=== PATIENT | male | born 1965 | race Caucasian/White ===

== ENCOUNTER 2018-10-12 16:36 | Emergency (ER) | payer OTHER, SELFPAY ==
[2018-10-12 16:37] VITALS: BP 146/90; PULSE 82; RESP 15; TEMP 36.7; O2SAT 96; BMI 30.2
--- NOTE | 2018-10-12 17:25 | RAD_ITS ---
STUDY: X-RAY - LEFT HAND, SECOND DIGIT REASON FOR EXAM: Male, 53 years old. Pain TECHNIQUE: 3 view(s) of the finger were obtained. COMPARISON: None. FINDINGS: There is soft tissue edema. There is soft tissue laceration with air within the soft tissues within the ventral soft tissues which extends from the metacarpal phalangeal joint to the distal phalanx of the second digit.. There are no fractures. Bone mineralization is preserved. RAD/Finger(s) Min 2 Views IMPRESSION: Soft tissue edema with with soft tissue laceration of the second digit with extensive air within the ventral soft tissues extending from the metacarpal phalangeal joint to the distal phalanx. No fractures Electronically Signed: Joe Valle, at 17:50 EDT Tel , Service support ,
--- NOTE | 2018-10-12 18:08 | ED.VISSUMM ---
- ER Visit Summary Date of Service: 10/12/18 Chief Complaint: [Laceration to left index finger] History of Present Illness: The patient is a 53 M [to the emergency department after sustaining a laceration to his left index finger that occurred prior to arrival in the emergency department. Patient states that he was using a pressure supervisor when at high throttle he accidentally came across his left index finger. Patient sustained a laceration to the volar aspect of the PIP joint. Patient states instantly his finger seems swollen to twice its original size. Since the time of injury patient's been squeezing the finger and he has been having air and water seeping out of it. He denies significant pain after taking some bupropion. Patient is right-hand dominant. Patient is up-to-date on tetanus. Patient is adamant that this was only water and the pressure supervisor and it did not have any detergent or other chemicals in it.] Physical Examination: HEENT-PERRLA, EOMI. Cranial nerves II through XII grossly intact. TMs clear. Mucous membranes moist. No adenopathy. Cardiovascular-regular rate and rhythm without murmur or ectopy Lungs-clear to auscultation, chest wall stable without crepitus or subcu emphysema Abdomen-normoactive bowel sounds, soft, nontender, no rebound or rigidity, no peritoneal signs. Extremities-intact ?4, normal range of motion, normal pulses. Left index finger-patient has a 1 cm laceration over the volar aspect of the DIP joint of the left index finger. Patient has normal range of motion in flexion extension of the DIP joint as well as the PIP joint. Normal cap refill. Normal sensation.] Test Results: [X-rays of the left index finger obtained showed air in the soft tissues with laceration over the DIP joint. No fractures or foreign bodies noted within the wound.] Emergency Department Course and Treatment: [Case was initially discussed with who asked that we leave the wound open and not suture. At this point I was asked to put him on antibiotics and have patient follow-up with his office tomorrow. Patient is not waiting for pain. ] Treatment Plan: [Follow-up with hand surgeon tomorrow. Patient be started on Keflex.] Disposition: [Discharged home in stable condition.] Impression: [Pressure injury left index finger with laceration of 1 cm to left index finger-not repaired] This note was generated with [employer] dictation software. It may contain incorrect words, spelling, and punctuation that were not noted in review of the chart prior to signing ED Disposition - Plan for ED Patient: Referrals: Cinthia Marshall PA [Primary Care Provider] -
--- NOTE | 2018-10-12 18:12 | ED.DEP ---
ED Disposition - Plan for ED Patient: Instructions: LACERATION, Hand, LACERATION, Small/superficial, Not sutured Prescriptions: Cephalexin [Keflex] 500 mg PO Q6 #40 cap Prescription Printed Referrals: Cinthia Marshall PA [Primary Care Provider] - Topher Walker MD [STAFF PHYSICIAN] - 1 Day for another exam
[2018-10-12] MEDS: Cephalexin 250 MG Capsule 500 MG PO (18:17)
[2018-10-12 18:20] VITALS: RESP 18
== END 2018-10-12 18:21 | disposition home or self-care (01) ==
LOC: ED 17:22
PROVIDERS: Emergency Provider Emergency Medicine; Family Provider Physician Assistant; PCP Physician Assistant
DX: S61.211A Laceration without foreign body of left index finger without damage to nail, initial encounter (principal); W94.0XXA Exposure to prolonged high air pressure, initial encounter; Y93.9 Activity, unspecified; Y92.9 Unspecified place or not applicable
CPT/HCPCS: 73140; 99283

== ENCOUNTER 2020-02-03 09:07 | Observation (INO) | payer OTHER, SELFPAY ==
[2018-10-16 14:46] VITALS: BMI 30.2
[2020-02-03 09:07] VITALS: BP 170/109; PULSE 82; RESP 18; TEMP 36.8; O2SAT 99; BMI 31.4
--- NOTE | 2020-02-03 09:42 | CT_ITS ---
STUDY: CT ABDOMEN AND PELVIS WITH CONTRAST REASON FOR EXAM: Male, 54 years old. EPIGASTRIC PAIN, BILATERAL HERNIA REPAIR RADIATION DOSAGE (If Supplied By Facility): CTDIvol = ( 16.06 ) mGy, DLP = ( 1181.01 ) mGycm TECHNIQUE: Transaxial images were obtained from the dome of the diaphragm to the symphysis pubis with oral contrast. Oral and amp;amp; IV Gastrografin and amp;amp; 100mL Isovue-300 was administered. Sagittal and coronal images were reconstructed. Individualized dose optimization techniques were used for this CT. COMPARISON: Comparison is made with prior study dated 02/10/2017. FINDINGS: Minimal degree of bibasilar atelectasis. Calcified left hilar lymph nodes. The visualized portions of the heart are within normal limits. There is decreased attenuation of the liver consistent with steatosis. The patient is status post cholecystectomy. Normal spleen. Normal pancreas. Normal bilateral adrenal glands. Normal right kidney. Normal left kidney. Normal visualized stomach. Small bowel obstruction. There is evidence of diffuse circumferential wall thickening of the distal ileum. There is increased markings in the mesenteric fat at the level of the root of the mesentery. Small lymph nodes are seen within the mesenteric fat. There are multiple colonic diverticula consistent with diverticulosis. The appendix is visualized and appears normal. There is diffuse atherosclerotic calcification of the abdominal aorta, without a demonstrated aneurysm. Normal inferior vena cava. Normal retroperitoneum. Normal urinary bladder. There is a small umbilical hernia containing fat. Small bilateral inguinal hernias containing fat. Normal osseous structures. CT/Abdomen/Pelvis W IV Cont ONLY IMPRESSION: Small bowel obstruction with evidence of thickening of the distal ileum with increased markings in the root of the mesentery with small lymph nodes. Electronically Signed: Jose Raul Rausch, at 11:55 EDT , Service support ,
--- NOTE | 2020-02-03 09:42 | EKG12_ITS ---
Test Reason : CP Blood Pressure : / mmHG Vent. Rate : 082 BPM Atrial Rate : 082 BPM P-R Int : 160 ms QRS Dur : 096 ms QT Int : 378 ms P-R-T Axes : 056 023 013 degrees QTc Int : 441 ms Normal sinus rhythm Inferior infarct , age undetermined , cannot be excluded Abnormal ECG Confirmed by ANAY LA, SAUL ([id number]), social media editor JAKUB APARICIO ([id number]) on 02/07/2020 12:43:03 PM Referred By: KYLER Confirmed By:SAUL CUEVA MD
--- NOTE | 2020-02-03 09:44 | ED.VIS.GEN ---
History of Present Illness Chief Complaint: Chest Pain Informant: Patient Onset: Yesterday Context: Gradual Onset Timing: Intermittent Narrative: Is a 54-year-old male presenting with epigastric discomfort and abdominal pain. States he started to feel unwell last night when he went to bed with a stomachache. Around 2 AM he woke up with significant reflux and a burning sensation in his chest. He then started having stomach cramps that are in his lower abdomen lasting for about 30 seconds. He states it was like labor pains. They were about every 5 minutes throughout the night. He notes that he had prior cramp like that before his gallbladder was taken out. He also has had similar symptoms with IBS. Today he went to work and had a bowel movement. Shortly afterwards he started feel lightheaded, diaphoretic and then sat down. He developed dry heaves and vomiting. He denies any black or blood in his vomit or stool. He denies any fever or chills. His work symptom to be evaluated and also states that he cannot return until he has a Covid test. Patient had a televisit on his way in the ER that agreed that patient needed further emergent evaluation. Patient took his Nexium last night has not taken any medications today. No other complaints at this time. Prior similar symptoms: Yes - IBS, gallbladder flairs Past Medical History - Allergies and Home Meds Allergies/Adverse Reactions: Allergies codeine Allergy (Mild, Verified 10/16/18 14:45) Hives iodine Allergy (Mild, Verified 10/16/18 14:45) Hives SEAFOOD/FISH Allergy (Severe, Uncoded 10/16/18 14:45) Anaphylaxis Past Medical History: - - IBS Surgical History: cholecystectomy, hysterectomy Lives: Spouse/ Significant Other Smoking Status: Never smoker Alcohol: None Drugs: None - Family History Maternal Family History: Family History (Last Updated 10/13/18 @ 11:56 by Sanna Banerjee) Father Alcoholism Mother History of blood clots Family History: Reports: No pertinent history Paternal Family History: Family History (Last Updated 10/13/18 @ 11:56 by Sanna Banerjee) Father Alcoholism Mother History of blood clots Family History: Reports: No pertinent history Review of Systems General: Reports: Malaise, Sweats. Denies: Chills, Fever Eyes: Denies: Visual changes - bilaterally, Diplopia ENT: Denies: Bilateral ear pain, Rhinorrhea, Sore throat Cardiovascular: Reports: Chest pain. Denies: Palpitations Respiratory: Denies: Dyspnea, Cough, Sputum, Dyspnea on exertion Gastrointestinal: Reports: Abdominal pain, Nausea, Vomiting, Diarrhea. Denies: Melena, Hematochezia Genitourinary: Denies: Dysuria, Hematuria, Frequency Musculoskeletal: Denies: Back pain, Extremity Pain Skin: Denies: Rash, Wounds Neurological: Denies: Headache, Weakness, Numbness Physical Exam Vital Signs/Narrative: Vital Signs Temp Pulse Resp BP Pulse Ox 02/03/20 09:07 98.2 F 82 18 170/109 H 99 Inital Vital Signs reviewed: Yes General: Well nourished, Well developed, No Acute Distress Head: Normocephalic, Atraumatic Eyes: Perrl, EOMI ENT: Moist mucous membranes, No rhinorrhea, TM's clear Neck: Supple, Nontender, No JVD Cardiovascular: Regular rate, Regular rhythm, No murmurs Respiratory: No distress, CTA bilaterally, Chest nontender Abdomen: Soft, Nontender, Nondistended, Hyperactive bowel sounds. Negative for: Guarding, Rebound tenderness Back: Nontender, Normal Inspection. Negative for: CVA tenderness Extremities: Nontender, No edema Skin: Normal color, No rash Neurological: Alert, Oriented x3, Cranial nerves II-XII grossly intact, Normal Strength, Normal Sensation Psychological: Normal affect, Normal Mood Diagnostic/Tx/Re-eval Clinical Impression(s) from Imaging Studies Abdomen/Pelvis CT 02/03/20 09:42 IMPRESSION: Small bowel obstruction with evidence of thickening of the distal ileum with increased markings in the root of the mesentery with small lymph nodes. Electronically Signed: Jose Raul Rausch, at 11:55 EDT , Service support , Laboratory Data 02/03/20 02/03/20 02/03/20 09:10 09:10 09:55 WBC 10.6 RBC 5.90 Hgb 17.2 H Hct 51.8 MCV 87.8 MCH 29.2 MCHC 33.2 RDW Std Deviation 40.9 RDW Coeff of Srinivas 12.6 Plt Count 289 MPV 10.1 Immature Gran % (Auto) 0.500 Neut % (Auto) 85.4 H Lymph % (Auto) 9.1 L [place] % (Auto) 4.2 Eos % (Auto) 0.5 Baso % (Auto) 0.3 Absolute Neuts (auto) 9.1 H Absolute Lymphs (auto) 0.97 Nucleated RBC % 0 Sodium 138 Potassium 4.0 Chloride 105 Carbon Dioxide 27.0 Anion Gap 6 BUN 13 Creatinine 1.28 Estim Creat Clear Calc 74.56 Est GFR (MDRD) Af Amer 75 Est GFR (MDRD) Non-Af 62 BUN/Creatinine Ratio 10.2 Glucose 118 H Calcium 9.8 Total Bilirubin 1.00 Direct Bilirubin 0.25 AST 26 ALT 46 Alkaline Phosphatase 90 Troponin I < 0.015 Total Protein 9.5 H Albumin 4.3 Globulin 5.2 H Lipase 74 Urine Color Yellow Urine Clarity Sl. Cloudy Urine pH 6.5 Ur Specific [place] 1.015 Urine Protein 30 H Urine Glucose (UA) Normal Urine Ketones 5 H Urine Occult Blood 25 H Urine Nitrite Negative Urine Bilirubin Negative Urine Urobilinogen Normal Ur Leukocyte Esterase 25 H Urine RBC 0 SEEN Urine WBC 0 SEEN Ur Squamous Epith Cells 0 SEEN Urine Bacteria 0 SEEN Urine Mucus 3+ COVID-19 (JUAN MANUEL) 02/03/20 13:10 WBC RBC Hgb Hct MCV MCH MCHC RDW Std Deviation RDW Coeff of Srinivas Plt Count MPV Immature Gran % (Auto) Neut % (Auto) Lymph % (Auto) [place] % (Auto) Eos % (Auto) Baso % (Auto) Absolute Neuts (auto) Absolute Lymphs (auto) Nucleated RBC % Sodium Potassium Chloride Carbon Dioxide Anion Gap BUN Creatinine Estim Creat Clear Calc Est GFR (MDRD) Af Amer Est GFR (MDRD) Non-Af BUN/Creatinine Ratio Glucose Calcium Total Bilirubin Direct Bilirubin AST ALT Alkaline Phosphatase Troponin I Total Protein Albumin Globulin Lipase Urine Color Urine Clarity Urine pH Ur Specific [place] Urine Protein Urine Glucose (UA) Urine Ketones Urine Occult Blood Urine Nitrite Urine Bilirubin Urine Urobilinogen Ur Leukocyte Esterase Urine RBC Urine WBC Ur Squamous Epith Cells Urine Bacteria Urine Mucus COVID-19 (JUAN MANUEL) Not Detected - Rhythm Strip Rhythm Strip: Sinus Rhythm Rate: 82 Ectopy: None - EKG Initial EKG Interpretation: Sinus Rhythm, - - Normal sinus rhythm at a rate of 82 Normal axis Normal intervals Normal ST segments - Medical Decision Making Evaluated for epigastric discomfort that started last night that is now progressed into lower abdominal pain that is sharp and cramping in nature. He does have high-pitched bowel sounds on exam his abdomen is soft with no guarding or rebound tenderness. He is hemodynamically stable. I do not think this is ACS in nature. EKG is normal. He has grossly normal lab work but CT shows small bowel obstruction. Patient is evaluated by surgical service who will admit him to their service to monitor. Patient not have any vomiting in the ER and does not emergently require an NG tube. Patient is initially hesitant to be admitted but eventually consents. 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 ED Disposition - Plan for ED Patient: Disposition: Acute Care Hospital [facility] Diagnosis: Small bowel obstruction, Nausea
[2020-02-03 10:03] LABS: Absolute Lymphocyte Count 0.97 X10^3/uL (0.83-4.51); Absolute Neutrophil Count 9.1 X10^3/uL (2.0-7.7); Basophil# 0.03 X10^3/uL; Basophil% 0.3 % (0-1); Eosinophil# 0.05 X10^3/uL; Eosinophils% 0.5 % (0-5); Hematocrit 51.8 % (40-54); Hemoglobin 17.2 g/dL (13.0-16.5); Lymphocyte # 0.97 X10^3/ul (4.0); Lymphocyte % 9.1 % (19-41); Mean Corp Hgb Conc 33.2 g/dL (32-36); Mean Corpuscular Hgb 29.2 pg (27.0-32.0); Mean Corpuscular Volume 87.8 fL (80-94); Mean Platelet Vol. 10.1 fl (6.2-12.0); Monocyte# 0.45 X10^3/uL; Monocyte% 4.2 % (0-10); NRBC Flagged by Analyzer 0 % (0-5); Neutrophil # 9.06 X10^3/uL (2.7-7.7); Neutrophil % 85.4 % (47-70); Platelet Count 289 K/mm3 (150-450); RBC Distribution Width CV 12.6 % (11.6-14.6); RBC Distribution Width SD 40.9 fl (35.1-43.9); White Blood Count 10.6 K/mm3 (4.4-11.0)
[2020-02-03] MEDS: DiphenhydrAMINE 50 MG/ML Syringe IV (10:09)
[2020-02-03] MEDS: Metoclopramide 10 MG/2 ML Vial IV (10:09)
[2020-02-03] MEDS: Morphine 4 MG/ML Syringe IV (10:09)
[2020-02-03] MEDS: 0.9% Normal Saline 1,000 ML 1000 ML IV (10:09)
[2020-02-03 10:24] LABS: AST(SGOT) 26 U/L (15-37); Alanine Aminotransfer ALT/SGPT 46 U/L (16-61); Albumin, Serum 4.3 g/dL (3.2-5.0); Alkaline Phosphatase 90 U/L (45-117); Anion Gap 6 (5-15); BUN 13 mg/dL (7-18); BUN/Creat Ratio 10.2 RATIO (10-20); Bilirubin, Direct 0.25 mg/dL (0.00-0.30); Calcium,Total 9.8 mg/dL (8.5-10.1); Chloride 105 mmol/L (98-107); Creatinine, Serum 1.28 mg/dL (0.70-1.30); EST Glomerular Filtration Rate 62 mL/min (>60); Est Glom Filt Rate - Afr Amer 75 mL/min (>60); Estimated Creatinine Clearance 74.56 ml/min; Globulin 5.2 g/dL (2.2-4.2); Glucose 118 mg/dL (74-106); Lipase 74 U/L (73-393); Protein, Total 9.5 g/dL (6.4-8.2); Sodium Level 138 mmol/L (136-145)
[2020-02-03] MEDS: MethylPREDNISolone 125 MG/2 ML Vial IV (10:24)
[2020-02-03 10:25] VITALS: BP 181/118; PULSE 77; RESP 12; O2SAT 96
[2020-02-03 10:36] LABS: Bacteria 0 SEEN /hpf (None Seen); Red Blood Cells-Urine 0 SEEN /hpf (0-5); Squamous Epithelial Cells - UA 0 SEEN /hpf (0-5); White Blood Cells 0 SEEN /hpf (0-5)
[2020-02-03 10:38] LABS: Color, Urine Yellow (Yellow); Glucose, Dipstick Normal (Normal); Ketone-Dipstick 5 mg/dl (Negative); Leukocyte Esterase-Dipstick 25 /ul (Negative); Nitrite-Dipstick Negative (Negative); Occult Blood-Urine 25 /ul (Negative); Protein-Dipstick 30 mg/dl (Negative); Specific Gravity, Urine 1.015 (1.002-1.030); Urine Bilirubin Dipstick Negative (Negative); Urine Clarity Sl. Cloudy (Clear); Urine Urobilinogen Normal (Normal); Urine pH 6.5 (5.0 - 8.0)
[2020-02-03 10:45] LABS: Mucous, Urine 3+ /hpf (<or=2+)
[2020-02-03 12:14] VITALS: BP 130/95; PULSE 73; RESP 12; O2SAT 93
[2020-02-03 13:07] VITALS: BP 149/94; PULSE 78; RESP 13; O2SAT 94
--- NOTE | 2020-02-03 14:48 | PCM.HP.STD ---
Problem List (1) Small bowel obstruction Status: Acute History of Present Illness Date of Admission: 02/03/20 Chief Complaint: Generalized abdominal pain, nausea, vomiting The patient is a 54 year old M who presented with 1 day history of worsening abdominal pain/discomfort, nausea, vomiting. Patient notes he has had chronic wavy cramping discomfort since his gallbladder and simple umbilical hernia repair in October with Dr. Armijo. Patient states he has had soft solid/liquidy stools since surgery. He also noted since then something felt off. He notes lack of appetite. He states his stomach discomfort comes in waves and feels like contraction. Patient also notes back pain. No history of kidney stones. CT scan of the abdomen/pelvis demonstrated small bowel obstruction with mesentery inflammation and thickening of distal ileum. He denies history of inflammation bowel disease or family history of inflammatory bowel disease. Patient also notes previous history of open right inguinal hernia repair. PMHx of GERD and seasonal allergies Past Medical History Medical History: Medical History (Last Updated 10/13/18 @ 11:53 by Sanna Banerjee) IBS (irritable bowel syndrome) K58.9 Allergies codeine Allergy (Mild, Verified 10/16/18 14:45) Hives iodine Allergy (Mild, Verified 10/16/18 14:45) Hives SEAFOOD/FISH Allergy (Severe, Uncoded 10/16/18 14:45) Anaphylaxis Home Medications: Ambulatory Orders Medication Instructions Recorded Esomeprazole Mag Trihydrate 1 tab PO DAILY 02/04/17 [Nexium] Montelukast [Singulair] 10 mg PO DAILY 02/04/17 Surgical History: Surgical History (Last Reviewed 02/03/20 @ 14:57 by Harper MOSS, PA-C) History of hernia repair Z98.890, Z87.19 History of sinus surgery Z98.890 History of vasectomy Z98.52 Surgical History: cholecystectomy, herniorrhaphy - simple umbilical Psychiatric History: No pertinent psych hx Lives: Spouse/ Significant Other Smoking Status: Never smoker Alcohol: None Drugs: None - *Family History Maternal Family History: Family History (Last Updated 10/13/18 @ 11:56 by Sanna Banerjee) Father Alcoholism Mother History of blood clots History Items: No pertinent history Paternal Family History: Family History (Last Updated 10/13/18 @ 11:56 by Sanna Banerjee) Father Alcoholism Mother History of blood clots History Items: No pertinent history Review of Systems Constitutional: Reports: Anorexia. Denies: Chills, Fever, Night Sweats HEENT: Denies: Head Aches, Sinus Congestion, Sinus Drainage Cardiovascular: Denies: Chest Pain, Palpitations Respiratory: Denies: Cough, Shortness of breath at rest, Sputum production Gastrointestinal: Reports: Abdominal Pain, Diarrhea, Nausea, Vomiting Genitourinary: Denies: Dysuria Musculoskeletal: Reports: Back Pain Skin: Denies: Rash, Wounds Neurological: Denies: Numbness, Tingling, Focal weakness Psychiatric: Denies: Anxiety, Depression, Homicidal Ideations, Suicidal Ideations Hematologic/ Lymphatic: Denies: Easy Bruising, Easy Bleeding VTE Information - Inpt Only VTE Present on Admission: No Patient Problems: Active and Suspected Problems (Last Updated 10/13/18 @ 11:53 by Sanna Banerjee) Small bowel obstruction (Acute) - Physical Exam Vitals/I&O's: Vital Signs Temp Pulse Resp BP Pulse Ox 98.2 F 78 13 149/94 H 94 02/03/20 09:07 02/03/20 13:07 02/03/20 13:07 02/03/20 13:07 02/03/20 13:07 Oxygen Delivery Method Room Air Weight: 238 lb 1.588 oz Body Mass Index (BMI) 31.4 General: Alert, Oriented x3, Cooperative HEENT: Atraumatic, PERRLA, EOMI, Normocephalic Neck: Supple, No JVD, Negative Carotid Bruits Lungs: Clear to auscultation, Normal air movement Cardiovascular: Regular rate, No murmurs Abdomen: Soft, Hypoactive Bowel Sounds, Tender - generalized Extremities: No edema, Capillary Refill Less than 3 Seconds Skin: No rashes, No breakdown Musculoskeletal: No Tenderness to Palpation of Joints or Extremities Neurological: Cranial nerves II-XII grossly intact Psych/Mental Status: Normal Affect, Appropriate Laboratory Results 02/03/20 09:10: WBC 10.6, RBC 5.90, Hgb 17.2 H, Hct 51.8, MCV 87.8, MCH 29.2, MCHC 33.2, RDW Std Deviation 40.9, RDW Coeff of Srinivas 12.6, Plt Count 289, MPV 10.1, Immature Gran % (Auto) 0.500, Neut % (Auto) 85.4 H, Lymph % (Auto) 9.1 L, [place] % (Auto) 4.2, Eos % (Auto) 0.5, Baso % (Auto) 0.3, Absolute Neuts (auto) 9.1 H, Absolute Lymphs (auto) 0.97, Nucleated RBC % 0 02/03/20 09:10: Sodium 138, Potassium 4.0, Chloride 105, Carbon Dioxide 27.0, Anion Gap 6, BUN 13, Creatinine 1.28, Estim Creat Clear Calc 74.56, Est GFR (MDRD) Af Amer 75, Est GFR (MDRD) Non-Af 62, BUN/Creatinine Ratio 10.2, Glucose 118 H, Calcium 9.8, Total Bilirubin 1.00, Direct Bilirubin 0.25, AST 26, ALT 46, Alkaline Phosphatase 90, Troponin I < 0.015, Total Protein 9.5 H, Albumin 4.3, Globulin 5.2 H, Lipase 74 02/03/20 09:55: Urine Color Yellow, Urine Clarity Sl. Cloudy, Urine pH 6.5, Ur Specific [place] 1.015, Urine Protein 30 H, Urine Glucose (UA) Normal, Urine Ketones 5 H, Urine Occult Blood 25 H, Urine Nitrite Negative, Urine Bilirubin Negative, Urine Urobilinogen Normal, Ur Leukocyte Esterase 25 H, Urine RBC 0 SEEN, Urine WBC 0 SEEN, Ur Squamous Epith Cells 0 SEEN, Urine Bacteria 0 SEEN, Urine Mucus 3+ 02/03/20 13:10: COVID-19 (JUAN MANUEL) Pending Assessment/Plan All Active Problems (Last Updated 10/13/18 @ 11:53 by Sanna Banerjee) High-pressure injection injury of finger of left hand (Acute) Swelling of left index finger (Acute) Laceration of left index finger w/o foreign body w/o damage to nail (Acute) Small bowel obstruction (Acute) I am seeing this patient in conjunction with Dr. Barbosa Impression: Small bowel obstruction Plan: I have discussed this patient with Dr. Barbosa. Plan to admit with observation. Patient may be started on ice chips until tomorrow. Recommend bowel rest. Discussed with patient slowly restarting diet. Will check a KUB in the morning along with lab work. Patient also has a chronic condition which is ongoing since surgery. I have discussed with the patient that we will be treating his acute symptoms and he may further discuss future plan of action with Dr. armijo as an outpatient. Thank you for allowing us to participate in this patient's care. Office Visits / Consults: [id number] IP Consult L3
[2020-02-03 14:51] VITALS: BMI 31.4
[2020-02-03 14:54] VITALS: BP 149/94; PULSE 87; RESP 12; TEMP 36.6; O2SAT 94
[2020-02-03 15:17] VITALS: BMI 31.4
[2020-02-03] MEDS: 0.9% Normal Saline 1,000 ML 75 ML IV (16:05)
[2020-02-03 20:30] VITALS: BP 157/102; PULSE 88; RESP 16; TEMP 36.5; O2SAT 97
[2020-02-04 02:30] VITALS: BP 145/97; PULSE 83; RESP 16; TEMP 36.7; O2SAT 99
--- NOTE | 2020-02-04 05:15 | RAD_ITS ---
STUDY: X-RAY - ABDOMEN/PELVIS REASON FOR EXAM: Male, 54 years old. BOWEL OBSTRUCTION TECHNIQUE: AP supine and upright views of the abdomen and pelvis. COMPARISON: Comparison is made with prior study dated 02/10/2017. FINDINGS: There is an abundance of fecal material throughout the colon. There is no demonstrated free abdominal air. The visualized liver, spleen and kidneys are grossly normal in size and morphology. There are calcified phleboliths in the pelvis. There are mild degenerative changes of the visualized lumbar spine. RAD/Abd Inc Decub and/or Erect IMPRESSION: Large amount of fecal material is seen in the colon. Electronically Signed: Jose Raul Rausch, at 10:30 EDT , Service support ,
[2020-02-04] MEDS: 0.9% Normal Saline 1,000 ML 75 ML IV (05:35)
[2020-02-04] MEDS: 0.9% Saline Lock 10 ML Syringe IV (05:35)
[2020-02-04 07:08] VITALS: O2SAT 99
[2020-02-04 07:28] LABS: Absolute Lymphocyte Count 1.58 X10^3/uL (0.83-4.51); Absolute Neutrophil Count 12.7 X10^3/uL (2.0-7.7); Basophil# 0.02 X10^3/uL; Basophil% 0.1 % (0-1); Eosinophil# 0.01 X10^3/uL; Eosinophils% 0.1 % (0-5); Hematocrit 42.9 % (40-54); Hemoglobin 14.3 g/dL (13.0-16.5); Lymphocyte # 1.58 X10^3/ul (4.0); Lymphocyte % 10.3 % (19-41); Mean Corp Hgb Conc 33.3 g/dL (32-36); Mean Corpuscular Hgb 29.9 pg (27.0-32.0); Mean Corpuscular Volume 89.7 fL (80-94); Mean Platelet Vol. 10.1 fl (6.2-12.0); Monocyte# 0.96 X10^3/uL; Monocyte% 6.3 % (0-10); NRBC Flagged by Analyzer 0 % (0-5); Neutrophil # 12.65 X10^3/uL (2.7-7.7); Neutrophil % 82.5 % (47-70); Platelet Count 236 K/mm3 (150-450); RBC Distribution Width CV 12.9 % (11.6-14.6); RBC Distribution Width SD 41.9 fl (35.1-43.9); Red Blood Count 4.78 M/mm3 (4.6-6.2); White Blood Count 15.3 K/mm3 (4.4-11.0)
[2020-02-04 08:01] LABS: Anion Gap 6 (5-15); BUN 16 mg/dL (7-18); BUN/Creat Ratio 15.2 RATIO (10-20); Chloride 108 mmol/L (98-107); Creatinine, Serum 1.05 mg/dL (0.70-1.30); EST Glomerular Filtration Rate 78 mL/min (>60); Est Glom Filt Rate - Afr Amer 94 mL/min (>60); Estimated Creatinine Clearance 90.89 ml/min; Glucose 100 mg/dL (74-106); Potassium 3.5 mmol/L (3.5-5.1); Sodium Level 139 mmol/L (136-145)
[2020-02-04 09:36] VITALS: BP 126/74; PULSE 81; RESP 16; TEMP 37; O2SAT 99
--- NOTE | 2020-02-04 10:49 | PCM.PN.SRG ---
Patient Problems: Active and Suspected Problems (Last Updated 10/13/18 @ 11:53 by Sanna Banerjee) Nausea (Acute) Small bowel obstruction (Acute) Subjective: No complaints of nausea or vomiting or abdominal pain today patient states that he did have a loose soft bowel movement last night. Objective: Abdomen is soft nontender nondistended - Physical Exam Vitals/I&O's: Vital Signs Temp Pulse Resp BP Pulse Ox 98.6 F 81 16 126/74 H 99 02/04/20 09:36 02/04/20 09:36 02/04/20 09:36 02/04/20 09:36 02/04/20 09:36 Oxygen Delivery Method Room Air Weight: 238 lb 1.588 oz Body Mass Index (BMI) 31.4 Intake and Output for Last 24 Hours 02/02/20 02/03/20 02/04/20 23:59 23:59 23:59 Intake Total 1425 / 1545 946.25 / 946.25 Balance 1425 / 1545 946.25 / 946.25 Laboratory Results 02/03/20 13:10: COVID-19 (JUAN MANUEL) Not Detected 02/04/20 06:35: WBC 15.3 H, RBC 4.78, Hgb 14.3, Hct 42.9, MCV 89.7, MCH 29.9, MCHC 33.3, RDW Std Deviation 41.9, RDW Coeff of Srinivas 12.9, Plt Count 236, MPV 10.1, Immature Gran % (Auto) 0.700, Neut % (Auto) 82.5 H, Lymph % (Auto) 10.3 L, [place] % (Auto) 6.3, Eos % (Auto) 0.1, Baso % (Auto) 0.1, Absolute Neuts (auto) 12.7 H, Absolute Lymphs (auto) 1.58, Nucleated RBC % 0 02/04/20 06:35: Sodium 139, Potassium 3.5, Chloride 108 H, Carbon Dioxide 25.0, Anion Gap 6, BUN 16, Creatinine 1.05, Estim Creat Clear Calc 90.89, Est GFR (MDRD) Af Amer 94, Est GFR (MDRD) Non-Af 78, BUN/Creatinine Ratio 15.2, Glucose 100, Calcium 8.0 L Current Medications Acetaminophen (Acetaminophen 325 Mg Tablet) 650 mg PO Q6H PRN PRN PRN Reason: Pain Score 1-10/Temp > 100.7 F Sodium Chloride () 1,000 mls @ 75 mls/hr IV .[id number] DANIEL Last Admin: 02/04/20 05:35 Dose: 75 mls/hr Documented by: Metronidazole (Metronidazole 500 Mg Tablet) 500 mg PO TID DANIEL Morphine Sulfate (Morphine 4 Mg/Ml Syringe) 4 mg IV Q3H PRN PRN PRN Reason: Pain Score 6-10 Ondansetron HCl (Ondansetron 4 Mg/2 Ml Vial) 4 mg IV Q8H PRN PRN PRN Reason: NAUSEA/VOMITING Oxycodone HCl (Oxycodone 5 Mg Tablet) 10 mg PO Q4H PRN PRN PRN Reason: Pain Score 4-5 Sodium Chloride (0.9% Saline Lock 10 Ml Syringe) 10 - 40 ml IV UD PRN PRN Reason: SALINE FLUSH Last Admin: 02/04/20 05:35 Dose: 10 ml Documented by: Medical Necessity - Tobacco Use Smoking Status: Never smoker Assessment/Plan All Active Problems (Last Updated 10/13/18 @ 11:53 by Sanna Banerjee) Nausea (Acute) High-pressure injection injury of finger of left hand (Acute) Swelling of left index finger (Acute) Laceration of left index finger w/o foreign body w/o damage to nail (Acute) Small bowel obstruction (Acute) He did have a slight elevated white count today. I think him going give him some Flagyl. Have him take this at home as well. We will advance his diet to full liquids if he tolerates this and I will send him home later today. Inpatient E&M: 86102 Subs Hosp L2
--- NOTE | 2020-02-04 10:55 | DCINST_ITS ---
Discharge Diet: Light diet - advance as tolerated - If you have questions about your diet instructions, please talk to your doctor. Discharge Activity: May Not Drive - for 1 week or while taking narcotic pain medicine. May shower in (days): 1 Lifting Restrictions: 10 pounds Call your doctor if your incision/area has: Continuous Slow Oozing, Sudden Increased Bleeding, Increased Pain/ Swelling, Increased Redness, Foul Smelling Discharge Call your doctor if you observe: Fever of 101 or Higher Suture Line Care: Avoid Pulling/Pushing, Avoid Pinching/Bending Additional Dressing/Incision Instructions:: Change or remove dressing in 4 days. Leave steri-strips in place for 1 week. Allergies/Adverse Reactions: Allergies codeine Allergy (Mild, Verified 10/16/18 14:45) Hives iodine Allergy (Mild, Verified 10/16/18 14:45) Hives SEAFOOD/FISH Allergy (Severe, Uncoded 10/16/18 14:45) Anaphylaxis Medications to take at Discharge Esomeprazole Mag Trihydrate [Nexium] 40 mg PO DAILY 02/04/17 Montelukast [Singulair] 10 mg PO DAILY 02/04/17 Metronidazole [Flagyl] 500 mg PO TID #15 tab 02/04/20 The following prescriptions were given: Metronidazole [Flagyl] 500 mg PO TID #15 tab Transmission Status: Pending to [facility]/pharmacy #[id number] Primary Care Physician: Cinthia Marshall PA [Primary Care Provider] - Test Results: Test results from this visit will be discussed in further detail at your follow- up appointment, if applicable. Please Follow Up With: Da Barbosa MD - [phone] When: Call to make an appointment to be seen in about 10 days.
[2020-02-04] MEDS: metroNIDAZOLE 500 MG Tablet PO (13:05)
[2020-02-04 13:45] VITALS: BP 151/100; PULSE 74; RESP 18; TEMP 37.2; O2SAT 98
== END 2020-02-04 13:45 | disposition home or self-care (01) ==
LOC: ED 10:06 → MS3 14:59
PROVIDERS: Admitting Provider Physician Assistant; Emergency Provider Emergency Medicine; PCP Physician Assistant; Visit Provider Physician Assistant
DX: K56.609 Unspecified intestinal obstruction, unspecified as to partial versus complete obstruction (principal); K58.9 Irritable bowel syndrome, unspecified; R61 Generalized hyperhidrosis; R42 Dizziness and giddiness; Z23 Encounter for immunization; Z79.899 Other long term (current) drug therapy; K21.9 Gastro-esophageal reflux disease without esophagitis
CPT/HCPCS: 36415; 74019; 74177; 80048; 80076; 81001; 83690; 84484; 85025; 87635; 93005; 96361; 96372; 96374; 96375; 99218; 99251; 99285; J7030; Q9967; 90686; A4216; G0378; G0463; U0002

== ENCOUNTER → 2020-02-23 08:12 | Outpatient (CLI) | payer OTHER, SELFPAY ==
[2020-02-03 15:17] VITALS: BMI 31.4
--- NOTE | 2020-02-23 08:15 | RAD_ITS ---
STUDY: AIR-CONTRAST UPPER JUST SERIES AND SMALL BOWEL FOLLOW-THROUGH EXAMINATION. REASON FOR EXAM: Male, 54 years old. CRAMPING, PAIN AND DIARRHEA WORSE SINCE CHOLECTOMY OCTOBER 2019, VOMITING X2 WEEKS -- 47 FLUORO IMAGES, 73 FLUORO SEC, 26.6mGy FLUOROSCOPY TIME (if supplied): ( 73 seconds ) minutes/seconds TECHNIQUE: The patient ingested barium. Multiple images of the esophagus, stomach and duodenum were obtained. Following this, a small bowel follow-through examination was performed. COMPARISON: None. FINDINGS: The esophagus is unremarkable. There is no evidence of obstruction. No mass lesion is seen. There is no evidence of gastroesophageal reflux. The stomach and duodenum are unremarkable. A small bowel follow-through examination was then obtained. The small bowel transit is normal. There is no evidence of intrinsic or extrinsic small bowel disease. RAD/Upper GI/w Small Bowel IMPRESSION: Normal upper GI series and small bowel follow-through examination. Electronically Signed: Jose Raul Rausch, at 13:59 EST , Service support ,
== END ==
PROVIDERS: PCP Physician Assistant; Referring Provider Surgery; Visit Provider Surgery
DX: K56.609 Unspecified intestinal obstruction, unspecified as to partial versus complete obstruction (principal)
CPT/HCPCS: 74246; 74248

== ENCOUNTER 2022-03-28 23:20 | Emergency (ER) | payer OTHER, SELFPAY ==
--- NOTE | 2022-03-28 00:25 | RAD_ITS ---
INDICATION: syncope EXAMINATION/TECHNIQUE: X-RAY - XR Chest 1 View COMPARISON: Abdominal radiograph February 04, 2020. FINDINGS: LINES/DEVICES: None. LUNGS: No consolidation, edema or effusion. No pneumothorax. MEDIASTINUM AND CARDIOVASCULAR STRUCTURES: Cardiac silhouette not enlarged. Left greater than right hilar calcified lymph nodes. BONES AND SOFT TISSUES: Unremarkable. RAD/Chest 1 View (Portable) IMPRESSION: No radiographic evidence of acute cardiopulmonary disease. Electronically Signed: Ramses Madden MD at 1:02 EST ,
[2022-03-28 23:22] VITALS: BP 104/72; PULSE 94; RESP 18; TEMP 36.7; O2SAT 98; BMI 30.9
--- NOTE | 2022-03-28 23:55 | EKG12_ITS ---
Test Reason : Syncope Blood Pressure : / mmHG Vent. Rate : 089 BPM Atrial Rate : 089 BPM P-R Int : 176 ms QRS Dur : 108 ms QT Int : 366 ms P-R-T Axes : 058 012 010 degrees QTc Int : 445 ms Normal sinus rhythm Inferior infarct , age undetermined, cannot be excluded Abnormal ECG Confirmed by ANAY LA, SAUL ([id number]), web content editor JAKUB APARICIO ([id number]) on 03/30/2022 7:30:06 AM Referred By: Derek Confirmed By:SAUL CUEVA MD
[2022-03-28 23:58] VITALS: PULSE 89
--- NOTE | 2022-03-29 | CT_ITS ---
INDICATION: syncope EXAMINATION: CT BRAIN - CT Head or Brain W/O Contrast Injection TECHNIQUE: Multiple axial images were obtained of the head without intravenous contrast. A radiation dose optimization technique was used for this scan. IV Contrast dosage and agent: None. COMPARISON: None FINDINGS: BRAIN PARENCHYMA: No intra- or extra-axial hemorrhage. No evidence of acute infarct. No intracranial mass or mass effect. There is preservation of the ferrara/white matter interface. Posterior fossa structures are unremarkable. CSF SPACES: Appropriate for age. No hydrocephalus. Basal cisterns are patent. CALVARIUM, SKULL BASE, PARANASAL SINUSES AND MASTOID AIR CELLS: Left maxillary sinus mucoperiosteal thickening. No acute fracture. ORBITS: Both globes, extraocular muscles, optic nerves and retrobulbar fat appear unremarkable. CT/Brain/Head without Contrast IMPRESSION: No acute intracranial findings. Electronically Signed: Robert Alba MD at 0:38 EST ,
[2022-03-29] MEDS: 0.9% Normal Saline 1,000 ML 999 ML IV (00:13)
[2022-03-29 00:15] LABS: Absolute Lymphocyte Count 0.51 X10^3/uL (0.83-4.51); Absolute Neutrophil Count 4.8 X10^3/uL (2.0-7.7); Basophil# 0.02 X10^3/uL; Basophil% 0.3 % (0-1); Eosinophil# 0.02 X10^3/uL; Eosinophils% 0.3 % (0-5); Hematocrit 43.8 % (40-54); Hemoglobin 15.2 g/dL (13.0-16.5); Lymphocyte # 0.51 X10^3/ul (0.83-4.51); Lymphocyte % 8.5 % (19-41); Mean Corp Hgb Conc 34.7 g/dL (32-36); Mean Corpuscular Hgb 30.8 pg (27.0-32.0); Mean Corpuscular Volume 88.7 fL (80-94); Mean Platelet Vol. 9.3 fl (6.2-12.0); Monocyte# 0.68 X10^3/uL; Monocyte% 11.3 % (0-10); NRBC Flagged by Analyzer 0 % (0-5); Neutrophil # 4.77 X10^3/uL (2.7-7.7); Neutrophil % 79.3 % (47-70); POSITIVE DIFFERENTIAL YES; Platelet Count 194 K/mm3 (150-450); RBC Distribution Width CV 12.7 % (11.6-14.6); RBC Distribution Width SD 41.3 fl (35.1-43.9); Red Blood Count 4.94 M/mm3 (4.6-6.2)
[2022-03-29 00:19] LABS: Differential Indicated SCAN CRITERIA MET
[2022-03-29 00:37] LABS: Anion Gap 3 (5-15); BUN 15 mg/dL (7-18); BUN/Creat Ratio 9.5 RATIO (10-20); Calcium,Total 8.4 mg/dL (8.5-10.1); Chloride 102 mmol/L (98-107); Creatinine, Serum 1.58 mg/dL (0.70-1.30); EST Glomerular Filtration Rate 48 mL/min (>60); Est Glom Filt Rate - Afr Amer 58 mL/min (>60); Glucose 132 mg/dL (74-106); Magnesium 2.4 mg/dL (1.6-2.6); Potassium 3.5 mmol/L (3.5-5.1); Sodium Level 133 mmol/L (136-145); Troponin-I HS 7 pg/mL (3.0-78.0)
[2022-03-29 00:58] VITALS: BP 156/84; PULSE 85; RESP 16; O2SAT 98
[2022-03-29 02:10] LABS: Troponin-I HS 7 pg/mL (3.0-78.0)
--- NOTE | 2022-03-29 02:50 | EDS_ITS ---
HPI History of Present Illness Chief Complaint: Syncope Narrative Narrative: Patient is a 57-year-old male with a past medical history of IBS. He states for the past 2 days he has had fatigue with congestion and headache. He states that this evening he did not feel well and he stood up off the couch and started walking towards the bathroom. He states the next thing he remembers is waking up on the floor. He states when he awoke he knew who he was and where he was at. He denies any palpitations or chest pain. He states he feels very fatigued and with a syncopal event occurring at home family was concerned and therefore he was brought in for evaluation [facility] Medical History (Updated 03/29/22 @ 02:[address] Salvatore Reed DO) High-pressure injection injury of finger of left hand IBS (irritable bowel syndrome) Laceration of left index finger w/o foreign body w/o damage to nail Nausea Small bowel obstruction Swelling of left index finger Home Medications esomeprazole magnesium 40 mg capsule,delayed release 40 mg PO DAILY GERD 02/04/17 [History Last Taken 02/02/20] montelukast 10 mg tablet 10 mg PO DAILY ALLEGIES 02/04/17 [History Last Taken 02/02/20] dicyclomine 10 mg capsule 10 mg PO BID #15 caps 02/16/20 [Rx Last Taken Unknown] Allergy/AdvReac Type Severity Reaction Status Date / Time fish derived Allergy Severe Anaphylaxis Verified 03/28/22 23:25 [seafood - derived] shellfish derived Allergy Severe Anaphylaxis Verified 03/28/22 23:25 [seafood - shellfish] codeine Allergy Mild Hives Verified 03/28/22 23:25 iodine Allergy Mild Hives Verified 03/28/22 23:25 ibuprofen Allergy Hives Verified 03/28/22 23:41 Family History Father Alcoholism Mother History of blood clots Surgical History History of hernia repair History of sinus surgery History of vasectomy Social History (Updated 03/12/20 @ 11:[address] Da Barbosa MD) Smoking Status: Never smoker alcohol intake: current substance use type: does not use additional social history: DOES NOT USE ASPIRIN DOES NOT USE IBUPROFEN ROS ROS ED Constitutional Constitutional ED: Reports chills and subjective; Denies fever(s) ENT ENT ED: Reports rhinorrhea and sore throat Cardiovascular Cardiovascular: Denies chest pain or palpitations Respiratory/Chest Respiratory/Chest: Reports cough; Denies dyspnea Gastrointestinal Gastrointestinal: Reports nausea; Denies abdominal pain, diarrhea or vomiting Genitourinary Genitourinary ED: Denies dysuria Musculoskeletal Musculoskeletal: Reports myalgias Integumentary Denies rash Neurologic Neurologic: Reports headache(s) Hematologic/Lymphatic Hematologic/Lymphatic: Denies easy bleeding or easy bruising EXAM Physical Exam Const Vital Signs: 03/28/22 23:22 03/28/22 23:40 03/28/22 23:58 Temperature 98.0 F Temperature Source Temporal Pulse Rate 94 89 Respiratory Rate 18 Respiratory Effort Normal Non-Labored Respiratory Pattern Normal Blood Pressure 104/72 Blood Pressure Mean 82 Pulse Ox 98 Oxygen Delivery Method Room Air 03/29/22 00:58 03/29/22 03:00 Temperature Temperature Source Pulse Rate 85 91 Respiratory Rate 16 16 Respiratory Effort Respiratory Pattern Blood Pressure 156/84 H 138/81 H Blood Pressure Mean 108 Pulse Ox 98 95 Oxygen Delivery Method Room Air Positive well nourished and well developed General Appearance ED: well developed HEENT Reports dry mucous membranes HEENT Narrative: Cobblestoning noted in the posterior pharynx consistent with sinus drainage without airway edema or compromise. Mucous membranes are dry and tacky Mouth ED: Yes dry mucous membranes Mouth: dry mucous membranes Eyes PERRL and EOMs intact bilaterally Neck supple Neck Narrative: No meningeal signs noted Chest Wall palpation of chest normal Resp normal respiratory effort and clear to auscultation bilaterally Cardio regular rate and regular rhythm Rate: other Other Details: Radial pulses are plus 2 out of 4 bilaterally are equal and symmetric Carotid pulses equal and symmetric as well GI normal to inspection, nondistended, normoactive bowel sounds, non-tender, non- distended and no masses GI Narrative: No voluntary guarding or rigidity no pulsatile mass Auscultation: normoactive bowel sounds Palpation: soft Extremity normal to inspection Neuro oriented x3, CN's II-XII intact bilaterally and no sensory deficits noted Sensorium / Orientation: alert Psych mental status grossly normal Skin no rashes or lesions noted Skin Narrative: Skin turgor is increased MDM MDM MDM Narrative Medical decision making narrative: Patient presented to the ER awake and alert with stable vitals and normal neurologic exam. He reported a syncopal event that occurred after he was standing and walking to the bathroom which was most concerning/consistent with orthostasis. As he reported days of fatigue with congestion I felt that viral infection was a strong possibility the cause of his symptoms and therefore COVID and influenza were checked. Viral swabs were negative. As he did have syncopal event as well as headache there was concern for spontaneous rupture of a blood vessel so CT was obtained which was normal. Patient was given IV hydration and after this reported feeling better and was able to ambulate and walk with a steady gait. Therefore at this time with overall work-up indicating more dehydration orthostasis versus any type of cardiac or neurologic event he is otherwise safe for discharge. Lab Data Attestation: I reviewed the patient's lab results. Labs: Laboratory Results - last 24 hr 03/29/22 03/29/22 03/29/22 00:09 00:09 01:44 WBC 6.0 RBC 4.94 Hgb 15.2 Hct 43.8 MCV 88.7 MCH 30.8 MCHC 34.7 RDW Std Deviation 41.3 RDW Coeff of Srinivas 12.7 Plt Count 194 MPV 9.3 Immature Gran % (Auto) 0.300 Neut % (Auto) 79.3 H Lymph % (Auto) 8.5 L [place] % (Auto) 11.3 H Eos % (Auto) 0.3 Baso % (Auto) 0.3 Absolute Neuts (auto) 4.8 Absolute Lymphs (auto) 0.51 L Nucleated RBC % 0 Sodium 133 L Potassium 3.5 Chloride 102 Carbon Dioxide 28.0 Anion Gap 3 L BUN 15 Creatinine 1.58 H Estim Creat Clear Calc 58.30 Est GFR (MDRD) Af Amer 58 L Est GFR (MDRD) Non-Af 48 L BUN/Creatinine Ratio 9.5 L Glucose 132 H Calcium 8.4 L Magnesium 2.4 Troponin I High Sens 7 7 Radiography Diagnostic Testing: Clinical Impression(s) from Imaging Studies Chest X-Ray 03/28/22 00:25 IMPRESSION: No radiographic evidence of acute cardiopulmonary disease. Electronically Signed: Ramses Madden MD at 1:02 EST Reading Location ID and State: [facility] / [place] Tel , Service support , Brain CT 03/29/22 00:00 IMPRESSION: No acute intracranial findings. Electronically Signed: Robert Alba MD at 0:38 EST , Chest x-ray as interpreted by the emergency medicine physician reveals no acute infiltrate pneumothorax or pleural effusion Discharge Plan Triage Chief Complaint: Syncope ED Provider: Salvatore Reed Dx/Rx/DC Orders Clinical Impression: Syncope and collapse, Dehydration Instructions: Dehydration, ED Dizziness or Syncope ... Prescriptions: No Action dicyclomine 10 mg capsule 10 mg PO BID Qty: 15 2RF esomeprazole magnesium 40 MG capsule 40 mg PO DAILY montelukast 10 MG tablet 10 mg PO DAILY Primary Care Provider: Cinthia Marshall Referrals: Cinthia Marshall PA [Primary Care Provider] - Disposition Disposition: Home, Self Care Discharge Date/Time: 03/29/22 03:01
[2022-03-29 03:00] VITALS: BP 138/81; PULSE 91; RESP 16; O2SAT 95
== END 2022-03-29 03:01 | disposition home or self-care (01) ==
PROVIDERS: Emergency Provider Emergency Medicine; PCP Physician Assistant; Visit Provider Emergency Medicine
DX: R55 Syncope and collapse (principal); E86.0 Dehydration; Z20.822 Contact with and (suspected) exposure to COVID-19; K58.9 Irritable bowel syndrome, unspecified; R05.9 Cough, unspecified; R51.9 Headache, unspecified; Z79.899 Other long term (current) drug therapy
CPT/HCPCS: 70450; 71045; 80048; 83735; 84484; 85025; 87428; 93005; 99283; J7030; A4216

== ENCOUNTER 2022-09-10 22:45 | Emergency (ER) | payer OTHER, SELFPAY ==
[2022-09-10 22:47] VITALS: BP 138/91; PULSE 86; RESP 15; TEMP 36.8; O2SAT 95
--- NOTE | 2022-09-10 23:06 | ED.RN ---
left without being seen, voiced he was going to [facility]
== END 2022-09-10 23:06 | disposition left against medical advice (07) ==
LOC: ED 23:10
PROVIDERS: PCP Internal Medicine
DX: T78.40XA Allergy, unspecified, initial encounter (principal); R60.9 Edema, unspecified

== ENCOUNTER 2023-10-13 10:10 | Emergency (ER) | payer OTHER, SELFPAY ==
[2023-10-13 10:12] VITALS: BP 122/75; PULSE 89; RESP 18; TEMP 37.8; O2SAT 99; BMI 32.3
--- NOTE | 2023-10-13 10:30 | EX.ED.DYSGE1 ---
HPI History of Present Illness Chief Complaint: General Illness Informant: patient and spouse/S.O. Onset/Context/Timing Onset: Days Timing: Continuous Current Severity: Moderate Maximum Severity: Moderate Narrative Narrative: 58-year-old male history of hypertension. Prior cholecystectomy and 2 hernia repairs. Says since Friday he has been feeling well he had diarrhea and then developed on Friday lower abdominal pain. He developed sweats last night. He has never had diverticulitis before. Denies any dysuria. Says he just has been feeling well. Prior similar symptoms: No Recent Illness/Hospitalization: No [facility] Medical History (Updated 10/13/23 @ 13:[address] Paul Magana MD) Nausea High-pressure injection injury of finger of left hand Swelling of left index finger Laceration of left index finger w/o foreign body w/o damage to nail IBS (irritable bowel syndrome) Small bowel obstruction Home Medications ?Medication ?Instructions ?Recorded ?Last Taken ?Type esomeprazole magnesium 40 mg 40 mg PO DAILY GERD 02/04/17 02/02/20 History capsule,delayed release montelukast 10 mg tablet 10 mg PO DAILY ALLEGIES 02/04/17 02/02/20 History dicyclomine 10 mg capsule 10 mg PO BID #15 caps 02/16/20 Unknown Rx dicyclomine 10 mg capsule 10 mg PO TID #10 caps 10/13/23 Unknown Rx Allergy/AdvReac Type Severity Reaction Status Date / Time fish derived (seafood - Allergy Severe Anaphylaxis Verified 10/13/23 10:11 derived) shellfish derived (seafood Allergy Severe Anaphylaxis Verified 10/13/23 10:11 - shellfish) codeine Allergy Mild Hives Verified 10/13/23 10:11 iodine Allergy Mild Hives Verified 10/13/23 10:11 ibuprofen Allergy Hives Verified 10/13/23 10:11 Family History Father Alcoholism Mother History of blood clots Surgical History History of vasectomy History of hernia repair History of sinus surgery Social History Smoking Status: Never smoker alcohol intake: current substance use type: does not use additional social history: DOES NOT USE ASPIRIN DOES NOT USE IBUPROFEN ROS ROS ED ROS Narrative Diarrhea. Lower abd pain and sweats. Review of Systems ROS Unobtainable: Denies due to encephalopathy Constitutional Constitutional ED: Reports fever(s) and sweats; Denies chills Eyes Eyes: Denies blurry vision ENT ENT ED: Denies ear pain, rhinorrhea or sore throat Cardiovascular Cardiovascular: Denies chest pain Respiratory/Chest Respiratory/Chest: Denies cough or dyspnea Gastrointestinal Gastrointestinal: Reports abdominal pain and diarrhea; Denies constipation, melena, nausea or vomiting Genitourinary Genitourinary ED: Denies dysuria or hematuria Musculoskeletal Musculoskeletal: Denies arthralgias or back pain Integumentary Denies abscess or Abrasions Neurologic Neurologic: Denies headache(s) Psychiatric Psychiatric: Denies anxiety or depression Endocrine Endocrinology: Denies cold intolerance, heat intolerance, polydipsia, polyphagia or polyuria Hematologic/Lymphatic Hematologic/Lymphatic: Reports none Allergic/Immunologic Allergic/Immunologic ED: Denies mouth swelling, tongue swelling or urticaria EXAM Physical Exam Narrative Exam Narrative: 50-year-old male vital signs stable he does have a low-grade temperature 100.1. He does not look septic or toxic. H EENT exam unremarkable. Neck nontender no lymphadenopathy. Lungs clear to auscultation. Heart regular rhythm no murmur. Abdomen is soft he is tender in both lower quadrants and suprapubically. I do not feel any organomegaly. There is no obvious hernia. External exam is unremarkable and nontender. There is no cellulitis or scrotal swelling. Moving all 4 extremities. Nontender no edema. Back nontender. Neurologically is awake and alert no focal motor deficits. Const Vital Signs: 10/13/23 10:12 10/13/23 10:53 10/13/23 11:20 Temperature 100.1 F H 99.7 F H Temperature Source Oral Temporal Pulse Rate 89 91 Respiratory Rate 18 16 Respiratory Pattern Normal Blood Pressure 122/75 H 112/68 Blood Pressure Mean 90 82 Pulse Ox 99 96 Oxygen Delivery Method Room Air Room Air Positive well nourished and well developed; Negative for cachectic, contractures or unkempt General Appearance ED: well developed and NAD; Negative for unkempt, cachectic, contractures, cyanotic, diaphoretic or pallor Nutritional Appearance: Negative for cachectic HEENT Reports moist mucous membranes; Denies dry mucous membranes Negative for trauma or tenderness Mouth ED: No dry mucous membranes Mouth: No dry mucous membranes Eyes PERRL and EOMs intact bilaterally General Eye ED: Negative for pale conjunctiva or scleral icterus Neck no lymphadenopathy, supple and no JVD General: Negative for tenderness Lymph Lymphatic: Negative for other Chest Wall inspection of chest normal and palpation of chest normal Resp normal respiratory effort Effort and Inspection: Negative for retractions Auscultation: Negative for rales, rhonchi, wheezes or diminished lung sounds Cardio regular rate, regular rhythm, S1 normal heart sound, S2 normal heart sound and no murmurs Palpation: Negative for palpable S3 or palpable S4 Rate: Negative for bradycardia or tachycardic Rhythm: Negative for abnormal rhythm GI normal to inspection, nondistended, normoactive bowel sounds, non-distended and no masses; Negative for non-tender Inspection: Negative for abdominal distention Auscultation: normoactive bowel sounds Palpation: soft and tender; Negative for guarding, splenomegaly, mass or rebound tenderness present Back/Spine no CVA tenderness General Back: Negative for CVA tenderness Cervical Spine: Negative for cervical spine tenderness Thoracic Spine / Upper Back: Negative for thoracic spinal tenderness or paraspinal muscle tenderness Lumbar Spine / Lower Back: Negative for lumbar spinal tenderness Extremity normal to inspection General Extremety ED: Negative for edema or tenderness General Extremity: Negative for edema Neuro oriented x3 and CN's II-XII intact bilaterally Sensorium / Orientation: alert; Negative for orientation impaired, lethargic or stuporous Motor Exam: strength 5/5 throughout Psych mental status grossly normal Appearance: Negative for unkempt Attitude: No agitated Skin no rashes or lesions noted and no wounds General Skin Exam: Negative for jaundice or pallor Lesions: No lesion noted Rashes: No rashes noted Trauma: Negative for abrasion Wounds: Negative for wounds noted MDM MDM MDM Narrative Medical decision making narrative: 58-year-old gentleman with lower abdominal pain with a low-grade fever and sweats. Clinically think this may be acute diverticulitis. Versus other etiologies. I do not think it is appendicitis. I do not think it is a UTI but they are both in the differential. CAT scan and labs will be obtained. To be treated with a liter normal saline due to his diarrhea. Also morphine for pain and Zofran. Repeat exam patient doing well at 12:05 PM. We went over his test results. I have GI on page to discuss his colitis. Patient has a history of chronic diarrhea per his . He is feeling better after the IV fluids, pain medication and Tylenol for his headache. Currently he does not not want any more pain medication. Discussed patient's colitis with GI on-call. At this time did not want to treat the patient with antibiotics because only been about 4 days. Most likely this is a viral infection. Outpatient follow-up. Return if worse. Patient and his are comfortable with the plan. They had concerns this could be a hernia I explained to them both on physical exam and CAT scan there is no signs of any acute hernia. On repeat physical exam there is no inguinal or umbilical hernias. History & Record Review Discussion w/independent historian: Patient and Family Additional record(s) reviewed:: Prior inpatient record, Prior outpatient record, Prior ED visit and Prior labs Lab Data Attestation: I reviewed the patient's lab results. Lab results narrative: CBC shows a white count of 13.5. H&H of 14 and 42. Platelets 214. Electrolytes show a gap of 6. BUN of 18 and creatinine 1.48 has had elevated creatinines in the past. Liver enzymes are normal. UA is normal. No white or red cells. No nitrites. CAT scan of the abdomen without contrast due to the iodine allergy shows diffuse colitis. Labs: Laboratory Results - last 24 hr 10/13/23 10/13/23 10:35 11:30 WBC 13.5 H RBC 4.82 Hgb 14.2 Hct 42.4 MCV 88.0 MCH 29.5 MCHC 33.5 RDW Std Deviation 41.7 RDW Coeff of Srinivas 12.9 Plt Count 214 MPV 9.7 Immature Gran % (Auto) 0.400 Neut % (Auto) 88.1 H Lymph % (Auto) 4.2 L [place] % (Auto) 7.0 Eos % (Auto) 0.1 Baso % (Auto) 0.2 Absolute Neuts (auto) 11.9 H Absolute Lymphs (auto) 0.57 L Nucleated RBC % 0 Sodium 138 Potassium 3.6 Chloride 106 Carbon Dioxide 26.0 Anion Gap 6 BUN 18 Creatinine 1.48 H Estim Creat Clear Calc 71.10 Est GFR (MDRD) Af Amer 63 Est GFR (MDRD) Non-Af 52 L BUN/Creatinine Ratio 12.2 Glucose 114 H Calcium 8.4 L Total Bilirubin 1.10 H AST 18 ALT 35 Alkaline Phosphatase 76 Total Protein 7.8 Albumin 3.2 Globulin 4.6 H Albumin/Globulin Ratio 0.7 L Urine Color Yellow Urine Clarity Clear Urine pH 6.0 Ur Specific [place] 1.020 Urine Protein 30 H Urine Glucose (UA) Normal Urine Ketones Negative Urine Occult Blood 25 H Urine Nitrite Negative Urine Bilirubin Negative Urine Urobilinogen 1 H Ur Leukocyte Esterase Negative Urine RBC 0-5 SEEN Urine WBC 0 SEEN Ur Squamous Epith Cells 0 SEEN Urine Bacteria 0 SEEN Urine Mucus 0 SEEN Radiography Diagnostic Testing: Clinical Impression(s) from Imaging Studies Abdomen/Pelvis CT 10/13/23 10:47 IMPRESSION: 1. Findings suggest diffuse colitis. 2. Diverticulosis coli. 3. Nonspecific mesenteric panniculitis. 4. Punctate left renal stone. Electronically Signed: Sudhir Wilburn MD at 11:24 EDT Reading Location ID and State: [facility] / [place] Tel , Service support , Discharge Plan Triage Chief Complaint: General Illness ED Provider: Paul Magana Dx/Rx/DC Orders Clinical Impression: Colitis, Diarrhea Instructions: ED Understanding Colitis Prescriptions: New dicyclomine 10 mg capsule 10 mg PO TID Qty: 10 0RF Rx Instructions: Take as needed for abdominal cramping. No Action dicyclomine 10 mg capsule 10 mg PO BID Qty: 15 2RF esomeprazole magnesium 40 MG capsule 40 mg PO DAILY montelukast 10 MG tablet 10 mg PO DAILY Primary Care Provider: Lul Hannon Referrals: Lul Hannon MD [Primary Care Provider] - 3-5 Days Activity Restrictions/Additional Instructions: Plenty of fluids to prevent dehydration and rest. Bentyl as needed for abdominal cramping. Follow-up with your primary care physician if not improving. Return if feeling worse. Your labs look good. Your CAT scan shows the colitis but does not show any signs of an acute hernia. Nor does your exam. Most likely this is due to a virus currently. You do not need to be put on antibiotics unless this would continue. Print Language: Russian Disposition Disposition: Home, Self Care
[2023-10-13] MEDS: Ondansetron 4 MG/2 ML Vial IV (10:36)
[2023-10-13] MEDS: morphine 8 MG/ML Syringe 6 MG IV ×2 (10:37→13:47)
[2023-10-13] MEDS: 0.9% Normal Saline (1000mL) 1,000 ML 999 ML IV (10:37)
[2023-10-13 10:47] LABS: Absolute Lymphocyte Count 0.57 X10^3/uL (0.83-4.51); Absolute Neutrophil Count 11.9 X10^3/uL (2.0-7.7); Basophil# 0.03 X10^3/uL; Basophil% 0.2 % (0-1); Eosinophil# 0.01 X10^3/uL; Eosinophils% 0.1 % (0-5); Hematocrit 42.4 % (40-54); Hemoglobin 14.2 g/dL (13.0-16.5); Lymphocyte # 0.57 X10^3/ul (0.83-4.51); Lymphocyte % 4.2 % (19-41); Mean Corp Hgb Conc 33.5 g/dL (32-36); Mean Corpuscular Hgb 29.5 pg (27.0-32.0); Mean Platelet Vol. 9.7 fl (6.2-12.0); Monocyte# 0.95 X10^3/uL; NRBC Flagged by Analyzer 0 % (0-5); Neutrophil # 11.89 X10^3/uL (2.7-7.7); Neutrophil % 88.1 % (47-70); POSITIVE DIFFERENTIAL YES; Platelet Count 214 K/mm3 (150-450); RBC Distribution Width CV 12.9 % (11.6-14.6); RBC Distribution Width SD 41.7 fl (35.1-43.9); Red Blood Count 4.82 M/mm3 (4.6-6.2); White Blood Count 13.5 K/mm3 (4.4-11.0)
--- NOTE | 2023-10-13 10:47 | CT_ITS ---
EXAM: CT ABDOMEN AND PELVIS WITHOUT INTRAVENOUS CONTRAST CLINICAL INDICATION: lower abd pain ?? Diverticulitis TECHNIQUE: Helically acquired images were obtained of the abdomen and pelvis without intravenous contrast. This CT exam was performed using one or more of the following dose reduction techniques: automated exposure control, adjustment of the mA and/or kV according to patient size, and/or use of iterative reconstruction technique. COMPARISON: No relevant prior studies available. FINDINGS: LOWER THORAX: Normal. Lung bases are clear. No cardiomegaly. No pericardial effusion. ABDOMEN: LIVER: Normal. Homogeneous. GALLBLADDER AND BILE DUCTS: Cholecystectomy clips are in place. PANCREAS: Normal. No focal cystic mass. SPLEEN: Normal. Normal size without focal cystic or solid mass. ADRENALS: Normal. No nodules. KIDNEYS AND URETERS: Punctate stone noted within the upper pole of the left kidney. Kidneys are otherwise normal in appearance. No hydronephrosis or hydroureter. STOMACH AND BOWEL: Diffuse wall thickening of the large bowel suggestive of colitis associated with mild adjacent stranding. Diverticulosis of the colon noted without evidence of acute diverticulitis. PELVIS: APPENDIX: Appendix is visualized and normal in appearance. BLADDER: Normal. REPRODUCTIVE: Unremarkable as visualized. No mass. ABDOMEN and PELVIS: INTRAPERITONEAL SPACE: No ascites. BONES/JOINTS: No suspicious lytic or blastic abnormality. SOFT TISSUES: Anterior abdominal wall hernia repair noted at the level of the umbilicus. VASCULATURE: Normal. Abdominal aorta is non-dilated. LYMPH NODES: Increased density of the small bowel mesentery associated with small reactive mesenteric lymph nodes consistent with mesenteric panniculitis. CT/Abdomen/Pelvis without Cont IMPRESSION: 1. Findings suggest diffuse colitis. 2. Diverticulosis coli. 3. Nonspecific mesenteric panniculitis. 4. Punctate left renal stone. Electronically Signed: Sudhir Wilburn MD at 11:24 EDT ,
[2023-10-13 11:07] LABS: ALB/GLOB Ratio 0.7 RATIO (0.9-2.4); AST(SGOT) 18 U/L (15-37); Alanine Aminotransfer ALT/SGPT 35 U/L (16-61); Albumin, Serum 3.2 g/dL (3.2-5.0); Alkaline Phosphatase 76 U/L (45-117); Anion Gap 6 (5-15); BUN 18 mg/dL (7-18); BUN/Creat Ratio 12.2 RATIO (10-20); Calcium,Total 8.4 mg/dL (8.5-10.1); Chloride 106 mmol/L (98-107); Creatinine, Serum 1.48 mg/dL (0.70-1.30); EST Glomerular Filtration Rate 52 mL/min (>60); Est Glom Filt Rate - Afr Amer 63 mL/min (>60); Globulin 4.6 g/dL (2.2-4.2); Glucose 114 mg/dL (74-106); Potassium 3.6 mmol/L (3.5-5.1); Protein, Total 7.8 g/dL (6.4-8.2); Sodium Level 138 mmol/L (136-145)
[2023-10-13] MEDS: Acetaminophen 500 MG Tablet 1000 MG PO (11:18)
[2023-10-13 11:20] VITALS: BP 112/68; PULSE 91; RESP 16; TEMP 37.6; O2SAT 96
[2023-10-13 11:37] LABS: Bacteria 0 SEEN /hpf (None Seen); Mucous, Urine 0 SEEN /hpf (<or=2+); Squamous Epithelial Cells - UA 0 SEEN /hpf (0-5); White Blood Cells 0 SEEN /hpf (0-5)
[2023-10-13 11:38] LABS: Color, Urine Yellow (Yellow); Glucose, Dipstick Normal (Normal); Ketone-Dipstick Negative (Negative); Leukocyte Esterase-Dipstick Negative /ul (Negative); Nitrite-Dipstick Negative (Negative); Occult Blood-Urine 25 /ul (Negative); Protein-Dipstick 30 mg/dl (Negative); Urine Bilirubin Dipstick Negative (Negative); Urine Clarity Clear (Clear); Urine Urobilinogen 1 mg/dl (Normal)
[2023-10-13 11:43] LABS: Red Blood Cells-Urine 0-5 SEEN /hpf (0-5)
[2023-10-13 13:54] VITALS: BP 118/75; PULSE 83; RESP 16; TEMP 37.3; O2SAT 95
== END 2023-10-13 14:08 | disposition home or self-care (01) ==
PROVIDERS: Emergency Provider Emergency Medicine; PCP Internal Medicine; Visit Provider Emergency Medicine
DX: K52.9 Noninfective gastroenteritis and colitis, unspecified (principal); I10 Essential (primary) hypertension; R51.9 Headache, unspecified; Z90.49 Acquired absence of other specified parts of digestive tract; Z98.52 Vasectomy status
CPT/HCPCS: 74176; 80053; 81001; 85025; 99283; J7030; A4216; J2405